=== PATIENT | female | born 1995 | race Caucasian/White ===

== ENCOUNTER → 2017-04-10 | Outpatient (CLI) | payer OTHER ==
[2017-04-10 12:31] LABS: AUTOMATED NEUTROPHIL # 1.9 TH/MM3 (1.8-7.7); BASOPHIL % 0.4 % (0.0-2.0); EOSINOPHIL % 0.8 % (0.0-4.0); HEMATOCRIT 36.1 % (35.0-46.0); HEMO FLAGS DIFF FINAL; LYMPH % 40.9 % (9.0-44.0); LYMPHOCYTE # 1.6 TH/MM3 (1.0-4.8); MEAN CELL VOLUME 90.5 FL (80.0-100.0); MEAN CORPUSCULAR HEMOGLOBIN 30.3 PG (27.0-34.0); MEAN CORPUSCULAR HGB CONC 33.5 % (32.0-36.0); MONO % 9.1 % (0.0-8.0); NEUT % 48.8 % (16.0-70.0); PLATELET COUNT 277 TH/MM3 (150-450); RED BLOOD COUNT 3.99 MIL/MM3 (4.00-5.30); RED CELL DISTRIBUTION WIDTH 12.5 % (11.6-17.2); WHITE BLOOD COUNT 3.9 TH/MM3 (4.0-11.0)
[2017-04-10 13:16] LABS: IMMUNOGLOBULIN A LESS THAN 10 MG/DL (71-391); IMMUNOGLOBULIN G 1560 MG/DL (690-1700); IMMUNOGLOBULIN M 34 MG/DL (53-327)
[2017-04-13 03:52] LABS: IGG SUBCLASSES 4 8.5 mg/dL (4-86)
== END ==
LOC: CLAB 11:53
DX: D84.9 Immunodeficiency, unspecified (principal)
CPT/HCPCS: 36415; 82784; 82787; 85025

== ENCOUNTER → 2018-02-19 | Outpatient (CLI) | payer OTHER ==
[2018-02-19 10:16] LABS: AUTOMATED NEUTROPHIL # 3.1 TH/MM3 (1.8-7.7); BASOPHIL % 0.5 % (0.0-2.0); EOSINOPHIL % 0.5 % (0.0-4.0); HEMATOCRIT 34.5 % (35.0-46.0); LYMPH % 32.4 % (9.0-44.0); LYMPHOCYTE # 1.7 TH/MM3 (1.0-4.8); MEAN CELL VOLUME 88.1 FL (80.0-100.0); MEAN CORPUSCULAR HEMOGLOBIN 30.8 PG (27.0-34.0); MEAN CORPUSCULAR HGB CONC 34.9 % (32.0-36.0); MEAN PLATELET VOLUME 8.2 FL (7.0-11.0); MONOCYTE # 0.4 TH/MM3 (0-0.9); NEUT % 59.6 % (16.0-70.0); PLATELET COUNT 303 TH/MM3 (150-450); RED BLOOD COUNT 3.91 MIL/MM3 (4.00-5.30); RED CELL DISTRIBUTION WIDTH 12.8 % (11.6-17.2); WHITE BLOOD COUNT 5.2 TH/MM3 (4.0-11.0)
[2018-02-22 08:15] LABS: SEROTYPE 1 (1) 4.6 mcg/mL (>=2.3); SEROTYPE 10A (34) 6.7 mcg/mL (>=2.9); SEROTYPE 11A (43) 3.4 mcg/mL (>=2.4); SEROTYPE 12F (12) 6.2 mcg/mL (>=0.6); SEROTYPE 14 (14) 8.3 mcg/mL (>=7.0); SEROTYPE 15B (54) 1.7 mcg/mL (>=3.3); SEROTYPE 17F (17) 12.1 mcg/mL (>=7.8); SEROTYPE 18C (56) 0.8 mcg/mL (>=3.3); SEROTYPE 19A (57) 13.1 mcg/mL (>=17.1); SEROTYPE 19F (19) 18.2 mcg/mL (>=15.0); SEROTYPE 2 (2) 7.9 mcg/mL (>=1.0); SEROTYPE 20 (20) 5.2 mcg/mL (>=1.3); SEROTYPE 22F (22) 11.3 mcg/mL (>=7.2); SEROTYPE 23F (23) 21.9 mcg/mL (>=8.0); SEROTYPE 3 (3) 4.5 mcg/mL (>=1.8); SEROTYPE 33F (70) 6.4 mcg/mL (>=1.7); SEROTYPE 4 (4) 2.6 mcg/mL (>=0.6); SEROTYPE 5 (5) 17.9 mcg/mL (>=10.7); SEROTYPE 7F (51) 6.1 mcg/mL (>=3.2); SEROTYPE 8 (8) 2.8 mcg/mL (>=2.9); SEROTYPE 9N (9) 2.9 mcg/mL (>=9.2); SEROTYPE 9V (68) 7.3 mcg/mL (>=2.6)
== END ==
LOC: CLAB 09:50
DX: D84.9 Immunodeficiency, unspecified (principal)
CPT/HCPCS: 36415; 82784; 82787; 85025; 86317